=== PATIENT | male | born 1960 | race Two or more races ===

== ENCOUNTER → 2016-11-16 | Outpatient (CLI) | payer OTHER ==
--- NOTE | 2016-11-16 08:32 | REP ---
Clinical: [place] deformity. Technique: AP, lateral, bilateral oblique views of the right third digit. Findings: The osseous structures and joint spaces appear intact and normal. Overt osteoarthritic degenerative changes are appreciated. Specifically, no osteophytosis or periarticular erosive changes are appreciated. The surrounding soft tissues appear normal. No acute fracture dislocation. Impression: No overt osteoarthritic degenerative changes. No significant radiographic abnormality noted.
== END ==
LOC: M CLY 07:41
PROVIDERS: ATTEND Family Medicine
DX: M20.001 Unspecified deformity of right finger(s) (principal)

== ENCOUNTER → 2017-04-21 | Outpatient (CLI) | payer OTHER | LOC: M CLY 11:01 | DX: R07.81 Pleurodynia (principal) ==